=== PATIENT | male | born 1950 | race Caucasian/White ===

== ENCOUNTER 2018-11-08 13:03 | Outpatient (CLI) | payer OTHER, MEDICARE | END 2018-11-08 21:07 | disposition home or self-care (01) | LOC: SRD 13:03 | PROVIDERS: ATTEND Internal Medicine | DX: N18.6 End stage renal disease (principal); Z86.11 Personal history of tuberculosis | CPT/HCPCS: 71046-TC ==

== ENCOUNTER 2020-03-05 12:24 | Outpatient (CLI) | payer OTHER, MEDICARE | END 2020-03-05 20:50 | disposition home or self-care (01) | LOC: SRD 12:24 | PROVIDERS: ATTEND Student in an Organized Health Care Education/Training Program | DX: J18.9 Pneumonia, unspecified organism (principal); J90 Pleural effusion, not elsewhere classified | CPT/HCPCS: 71046-TC ==

== ENCOUNTER → 2023-01-23 | Outpatient (CLI) | payer OTHER, MEDICARE | END | disposition home or self-care (01) | LOC: SUS 07:46 | PROVIDERS: ATTEND Internal Medicine | DX: N18.6 End stage renal disease (principal); N26.1 Atrophy of kidney (terminal); R18.8 Other ascites; K74.69 Other cirrhosis of liver | CPT/HCPCS: 76700-TC ==